=== PATIENT | female | born 1930 | race Caucasian/White ===

== ENCOUNTER 2016-10-12 09:18 | Emergency (ER) | payer MEDICARE ==
[2016-10-12 09:27] VITALS: BP 151/78
[2016-10-12] MEDS ORDERED: DOXYcycline CAP(*) 100 MG PO ONE (10:05)
--- NOTE | 2016-10-12 10:14 | ED ---
Skin Complaint - HPI Summary HPI Summary: Patient presents to ED with CC of tick bite to the right upper thigh. The tick was attached and dislodged the same day, however the patient notes there is a black spot still present which is surrounded by erythema. She is concerned the head is still lodged into the thigh. She is requesting doxycycline. She was previously diagnosed with Lyme symptoms after a tick bite and placed on 14 days of doxycycline. She is concerned that since there is a black pineda still on her leg, that part of the tick remains. It has been 3 days , and she has not developed any symptoms. She is otherwise healthy. - History of Current Complaint Chief Complaint: EDRashSkinAbscess Time Seen by Provider: 10/12/16 09:35 Stated Complaint: TICK Hx Obtained From: Patient Onset/Duration: Started Days Ago Skin Exposure Onset/Duration: Days Ago Timing: Constant Onset Severity: Mild Current Severity: Mild Pain Intensity: 2 Pain Scale Used: 0-10 Numeric Skin Location: Discrete - right upper thigh Character: Pain Aggravating Symptom(s): Nothing Alleviating Symptom(s): Nothing Associated Signs & Symptoms: Negative Related History: Possible Reaction to: Insect - Allergy/Home Medications Allergies/Adverse Reactions: Allergies Allergy/AdvReac Type Severity Reaction Status Date / Time Cephalexin [From Keflex] Allergy Anaphylatic Verified 10/12/16 09:24 Shock Penicillins Allergy Anaphylatic Verified 10/12/16 09:24 Shock Sulfa Antibiotics Allergy Hives Verified 10/12/16 09:24 PMH/Surg Hx/FS Hx/Imm Hx Previously Healthy: Yes - Immunization History Hx Pertussis Vaccination: No Immunizations Up to Date: No Infectious Disease History: No Infectious Disease History: Denies: Traveled Outside the [place] in Last 30 Days - Social History Occupation: Retired Lives: With Family Alcohol Use: None Hx Substance Use: No Substance Use Type: Reports: None Smoking Status (MU): Never Smoked Tobacco Do You Chew or Dip Tobacco: No Review of Systems Constitutional: Negative Eyes: Negative Cardiovascular: Negative Respiratory: Negative Musculoskeletal: Negative Positive: Other - small erythematous 1X1 area on upper thigh with small black dot in center with no EM Neurological: Negative Psychological: Normal All Other Systems Reviewed And Are Negative: Yes Physical Exam Triage Information Reviewed: Yes Vital Signs On Initial Exam: Initial Vitals Temp Pulse Resp BP Pulse Ox 98.1 F 71 16 151/78 100 10/12/16 09:25 10/12/16 09:25 10/12/16 09:25 10/12/16 09:25 10/12/16 09:25 Vital Signs Reviewed: Yes Appearance: Positive: Well-Appearing, No Pain Distress, Well-Nourished Skin: Positive: Warm, Skin Color Reflects Adequate Perfusion, Other - small erythematous 1X1 area on upper thigh with small black dot in center with no EM Head/Face: Positive: Normal Head/Face Inspection Neck: Positive: Supple, No Lymphadenopathy Respiratory/Lung Sounds: Positive: Clear to Auscultation, Breath Sounds Present Cardiovascular: Positive: Normal, RRR, Pulses are Symmetrical in both Upper and Lower Extremities Musculoskeletal: Positive: Normal, Strength/ROM Intact Neurological: Positive: Sensory/Motor Intact, Alert, Oriented to Person Place, Time, Speech Normal Psychiatric: Positive: Normal AVPU Assessment: Alert Diagnostics - Vital Signs Vital Signs Temp Pulse Resp BP Pulse Ox 10/12/16 09:25 98.1 F 71 16 151/78 100 - Laboratory Lab Statement: Any lab studies that have been ordered have been reviewed, and results considered in the medical decision making process. Course/Dx - Course Course Of Treatment: [facility] soap was used in attempt to dislodge small black dot. Tweezers used. Black dot remains. No head or body visualized. Patient dislodged head and body 3 days ago. No EM is visualized. Patient denies symptoms. Patient educated regarding prophylactic treatment. Doxycycline 200mg used d/t unknown exposure. - Differential Diagnoses - Skin Complaint Differential Diagnoses: Cellulitis, Scabies, Systemic Illness, Tick Born Illness - Diagnoses Provider Diagnoses: Tick bite Discharge - Discharge Plan Condition: Stable Disposition: HOME Patient Education Materials: Lyme Disease (ED), Tick Bite (ED) Additional Instructions: Approach to prophylaxis : According to the Infectious Diseases Society of [place] (IDSA) guidelines that recommend antibiotic prophylaxis only in patients who meet all of the following criteria: 1. Attached tick identified as an adult or nymphal I. scapularis tick (deer tick). 2. Tick is estimated to have been attached for 36 hours (by degree of engorgement or time of exposure). 3. Prophylaxis is begun within 72 hours of tick removal. Local rate of infection of ticks with B. burgdorferi is 20 percent if attached for over 48 hours (these rates of infection have been shown to occur in parts of [place], parts of the [facility], and parts of [place] and [place]). If you experience a tick and time of attachment is believed to be less than 36 hours, you may remove the tick with head intact and no need for prophylaxis. If over 36 hours, please come into UC. Prophylactic doxycycline is not recommended for ticks attached less than 36 hours.
== END 2016-10-12 10:15 | disposition home or self-care (01) ==
LOC: ED 09:18
DX: S70.361A Insect bite (nonvenomous), right thigh, initial encounter (principal); W57.XXXA Bitten or stung by nonvenomous insect and other nonvenomous arthropods, initial encounter; Y92.9 Unspecified place or not applicable; Z88.2 Allergy status to sulfonamides; Z88.0 Allergy status to penicillin; Z88.1 Allergy status to other antibiotic agents
CPT/HCPCS: 99282; A9270-GY